=== PATIENT | female | born 1940 | race Caucasian/White ===

== ENCOUNTER → 2019-09-06 10:01 | Outpatient (BNVA) | payer MEDICARE, OTHER, SELFPAY | PROVIDERS: Family Provider Family Medicine; Referring Provider Dermatology; Visit Provider Dermatology | DX: B35.1 Tinea unguium (principal); D18.01 Hemangioma of skin and subcutaneous tissue; L82.1 Other seborrheic keratosis; L57.0 Actinic keratosis; Z12.83 Encounter for screening for malignant neoplasm of skin | CPT/HCPCS: 17000; 17003; 99203; 99204 ==

== ENCOUNTER → 2020-11-25 09:34 | Outpatient (BNVA) | payer MEDICARE, OTHER, SELFPAY | PROVIDERS: Family Provider Family Medicine; PCP Family Medicine; Visit Provider Internal Medicine Rheumatology | DX: M35.3 Polymyalgia rheumatica (principal); Z79.899 Other long term (current) drug therapy; Z79.52 Long term (current) use of systemic steroids; Z11.59 Encounter for screening for other viral diseases; Z11.1 Encounter for screening for respiratory tuberculosis; Z71.85 Encounter for immunization safety counseling | CPT/HCPCS: 99204 ==

== ENCOUNTER → 2021-04-01 08:49 | Outpatient (BNVA) | payer MEDICARE, OTHER, SELFPAY | PROVIDERS: Family Provider Family Medicine; PCP Family Medicine; Visit Provider Internal Medicine Rheumatology | DX: M05.79 Rheumatoid arthritis with rheumatoid factor of multiple sites without organ or systems involvement (principal); Z79.899 Other long term (current) drug therapy; Z79.52 Long term (current) use of systemic steroids; Z71.85 Encounter for immunization safety counseling | CPT/HCPCS: 99214 ==

== ENCOUNTER 2021-07-09 11:29 | Outpatient (CLI) | payer MEDICARE, OTHER, SELFPAY ==
[2021-07-09 12:41] LABS: Basophils % 0.5 %; Eosinophils # 0.1 10^3/uL (0.0-0.8); Eosinophils % 1.5 %; Hematocrit 40.6 % (37.0-47.0); Hemoglobin 13.4 g/dL (11.5-15.3); Mean Corpuscular Volume 90.8 fl (81-99); Mean Platelet Volume 10.5 fL (7.4-10.4); Monocytes # 0.5 10^3/uL (0.2-0.9); Monocytes % 8.3 %; Neutrophils # 4.37 10^3/uL (1.8-7.7); Nucleated Red Blood Cells % 0 %; Platelet Count 237 10^3/cmm (130-400); Red Blood Count 4.47 10^6/uL (4.1-5.3); Red Cell Distribution Width 13.7 % (12.1-15.1)
[2021-07-09 12:49] LABS: Alanine Aminotransferase 21 U/L (0-33); Albumin Level 4.9 g/dL (3.5-5.2); Alkaline Phosphatase 59 IU/L (35-105); Aspartate Amino Transferase 22 U/L (0-32); Globulin 2.4 g/dL (1.3-4.6); Total Bilirubin 0.5 mg/dL (0.15-1.2); Total Protein 7.3 g/dL (6.6-8.7)
== END 2021-07-09 11:30 | disposition home or self-care (01) ==
LOC: LAB 11:32
PROVIDERS: PCP Family Medicine; Visit Provider Internal Medicine Rheumatology
DX: Z79.899 Other long term (current) drug therapy (principal); M35.3 Polymyalgia rheumatica
CPT/HCPCS: 80076; 82565; 85025; 86140

== ENCOUNTER → 2021-07-29 10:19 | Outpatient (BNVA) | payer MEDICARE, OTHER, SELFPAY | PROVIDERS: PCP Family Medicine; Visit Provider Internal Medicine Rheumatology | DX: M05.79 Rheumatoid arthritis with rheumatoid factor of multiple sites without organ or systems involvement (principal); Z79.899 Other long term (current) drug therapy; Z79.52 Long term (current) use of systemic steroids; Z71.85 Encounter for immunization safety counseling | CPT/HCPCS: 99214 ==

== ENCOUNTER 2021-09-25 06:00 | Outpatient (RCR) | payer MEDICARE, OTHER, SELFPAY | END 2021-10-07 23:59 | disposition home or self-care (01) | LOC: APT 06:00 | PROVIDERS: PCP Family Medicine; Referring Provider Orthopaedic Surgery; Visit Provider Orthopaedic Surgery | DX: Z47.1 Aftercare following joint replacement surgery (principal); Z96.652 Presence of left artificial knee joint | CPT/HCPCS: 97110; 97161 ==

== ENCOUNTER 2021-10-08 06:00 | Outpatient (RCR) | payer MEDICARE, OTHER, SELFPAY | END 2021-11-06 23:59 | disposition home or self-care (01) | LOC: APT 06:00 | PROVIDERS: PCP Family Medicine; Referring Provider Orthopaedic Surgery; Visit Provider Orthopaedic Surgery | DX: Z47.1 Aftercare following joint replacement surgery (principal); Z96.652 Presence of left artificial knee joint | CPT/HCPCS: 97110 ==

== ENCOUNTER → 2021-11-05 09:18 | Outpatient (BNVA) | payer MEDICARE, OTHER, SELFPAY | PROVIDERS: PCP Family Medicine; Visit Provider Internal Medicine Rheumatology | DX: M05.79 Rheumatoid arthritis with rheumatoid factor of multiple sites without organ or systems involvement (principal); Z71.85 Encounter for immunization safety counseling; Z79.899 Other long term (current) drug therapy; Z79.52 Long term (current) use of systemic steroids | CPT/HCPCS: 99214 ==

== ENCOUNTER 2021-11-17 09:02 | Outpatient (CLI) | payer MEDICARE, OTHER, SELFPAY ==
[2021-11-17 09:42] LABS: Basophils % 0.8 %; Eosinophils # 0.2 10^3/uL (0.0-0.8); Eosinophils % 4.5 %; Hematocrit 40.1 % (37.0-47.0); Hemoglobin 12.8 g/dL (11.5-15.3); Lymphocytes # 1.1 10^3/uL (0.8-4.8); Lymphocytes % 22.2 %; Mean Corpuscular HGB Conc 31.9 g/dL (30.0-36.0); Mean Corpuscular Hemoglobin 29.4 pg (28.0-34.0); Mean Corpuscular Volume 92.2 fl (81-99); Mean Platelet Volume 10.3 fL (7.4-10.4); Monocytes # 0.4 10^3/uL (0.2-0.9); Monocytes % 8.2 %; Neutrophils # 3.12 10^3/uL (1.8-7.7); Neutrophils % 63.7 %; Nucleated Red Blood Cells % 0 %; Platelet Count 262 10^3/cmm (130-400); Red Blood Count 4.35 10^6/uL (4.1-5.3); Red Cell Distribution Width 13.5 % (12.1-15.1); White Blood Count 4.9 10^3/uL (4.0-10.0)
[2021-11-17 10:02] LABS: Alanine Aminotransferase 30 U/L (0-33); Albumin Level 4.2 g/dL (3.5-5.2); Alkaline Phosphatase 84 U/L (35-105); Aspartate Amino Transferase 27 U/L (0-32); Globulin 2.9 g/dL (1.3-4.6); Total Bilirubin 0.4 mg/dL (0.15-1.2); Total Protein 7.1 g/dL (6.6-8.7)
== END 2021-11-17 09:03 | disposition home or self-care (01) ==
LOC: LAB 09:08
PROVIDERS: PCP Family Medicine; Visit Provider Internal Medicine Rheumatology
DX: M05.79 Rheumatoid arthritis with rheumatoid factor of multiple sites without organ or systems involvement (principal); Z79.899 Other long term (current) drug therapy
CPT/HCPCS: 36415; 80076; 82565; 85025; 86140

== ENCOUNTER → 2022-01-18 11:13 | Outpatient (BNVA) | payer MEDICARE, OTHER, SELFPAY | PROVIDERS: PCP Family Medicine; Visit Provider Internal Medicine Rheumatology | DX: M05.79 Rheumatoid arthritis with rheumatoid factor of multiple sites without organ or systems involvement (principal); Z79.899 Other long term (current) drug therapy; Z71.85 Encounter for immunization safety counseling; M35.3 Polymyalgia rheumatica; Z79.52 Long term (current) use of systemic steroids | CPT/HCPCS: 99214 ==

== ENCOUNTER → 2022-05-18 11:12 | Outpatient (BNVA) | payer MEDICARE, OTHER, SELFPAY | PROVIDERS: PCP Family Medicine; Visit Provider Internal Medicine Rheumatology | DX: M05.79 Rheumatoid arthritis with rheumatoid factor of multiple sites without organ or systems involvement (principal); Z79.899 Other long term (current) drug therapy; Z71.85 Encounter for immunization safety counseling; M35.3 Polymyalgia rheumatica | CPT/HCPCS: 99214 ==

== ENCOUNTER 2022-06-24 08:02 | Outpatient (CLI) | payer MEDICARE, OTHER, SELFPAY ==
[2022-06-24 08:42] LABS: Eosinophils # 0.2 10^3/uL (0.0-0.8); Eosinophils % 4.1 %; Hematocrit 41.7 % (37.0-47.0); Hemoglobin 13.2 g/dL (11.5-15.3); Lymphocytes # 0.8 10^3/uL (0.8-4.8); Lymphocytes % 18.9 %; Mean Corpuscular HGB Conc 31.7 g/dL (30.0-36.0); Mean Corpuscular Hemoglobin 29.3 pg (28.0-34.0); Mean Corpuscular Volume 92.7 fl (81-99); Mean Platelet Volume 10.1 fL (7.4-10.4); Monocytes # 0.5 10^3/uL (0.2-0.9); Monocytes % 11.2 %; Neutrophils % 64.3 %; Nucleated Red Blood Cells % 0 %; Platelet Count 237 10^3/cmm (130-400); Red Cell Distribution Width 13.9 % (12.1-15.1); White Blood Count 4.2 10^3/uL (4.0-10.0)
[2022-06-24 09:01] LABS: Alanine Aminotransferase 23 U/L (0-33); Albumin Level 4.6 g/dL (3.5-5.2); Alkaline Phosphatase 71 U/L (35-105); Aspartate Amino Transferase 25 U/L (0-32); Globulin 2.6 g/dL (1.3-4.6); Total Bilirubin 0.5 mg/dL (0.15-1.2); Total Protein 7.2 g/dL (6.6-8.7)
== END 2022-06-24 08:03 | disposition home or self-care (01) ==
PROVIDERS: PCP Family Medicine; Visit Provider Internal Medicine Rheumatology
DX: M05.79 Rheumatoid arthritis with rheumatoid factor of multiple sites without organ or systems involvement (principal); Z79.899 Other long term (current) drug therapy
CPT/HCPCS: 80076; 82565; 85025; 86140

== ENCOUNTER → 2022-07-28 10:56 | Outpatient (BNVA) | payer MEDICARE, SELFPAY | PROVIDERS: PCP Family Medicine; Visit Provider Nurse Practitioner Family | DX: L57.8 Other skin changes due to chronic exposure to nonionizing radiation (principal); Z85.828 Personal history of other malignant neoplasm of skin; Z71.89 Other specified counseling; L85.3 Xerosis cutis; D22.5 Melanocytic nevi of trunk; L81.4 Other melanin hyperpigmentation; L82.1 Other seborrheic keratosis; L82.0 Inflamed seborrheic keratosis; L57.0 Actinic keratosis; Z12.83 Encounter for screening for malignant neoplasm of skin; L90.5 Scar conditions and fibrosis of skin | CPT/HCPCS: 17000; 17003; 17110; 99213 ==

== ENCOUNTER → 2022-09-14 11:00 | Outpatient (BNVA) | payer MEDICARE, OTHER, SELFPAY | PROVIDERS: PCP Family Medicine; Visit Provider Internal Medicine Rheumatology | DX: Z79.899 Other long term (current) drug therapy (principal); M05.79 Rheumatoid arthritis with rheumatoid factor of multiple sites without organ or systems involvement; Z71.85 Encounter for immunization safety counseling; M35.3 Polymyalgia rheumatica; Z79.52 Long term (current) use of systemic steroids | CPT/HCPCS: 36415; 80076; 82565; 85025; 86140; 99214 ==

== ENCOUNTER → 2023-07-28 11:30 | Outpatient (BNVA) | payer MEDICARE, OTHER, SELFPAY | PROVIDERS: PCP Family Medicine; Visit Provider Nurse Practitioner Family | DX: L57.8 Other skin changes due to chronic exposure to nonionizing radiation (principal); D48.5 Neoplasm of uncertain behavior of skin; L57.0 Actinic keratosis; L82.0 Inflamed seborrheic keratosis; L81.4 Other melanin hyperpigmentation; L82.1 Other seborrheic keratosis; Z85.828 Personal history of other malignant neoplasm of skin | CPT/HCPCS: 11102; 17000; 17110; 99213 ==

== ENCOUNTER 2024-02-02 12:35 | Inpatient (IN) | payer MEDICARE, OTHER, SELFPAY ==
[2024-02-02] VITALS (7 sets, daily range): BP systolic 113–128; BP diastolic 59–80; PULSE 85–108; RESP 16–17; TEMP 36.7–37; O2SAT 93–98; BMI 23.3
--- NOTE | 2024-02-02 12:46 | XRR_ITS ---
PROCEDURE INFORMATION: Exam: XR Chest Exam date and time: 02/02/2024 1:18 PM Age: 84 years old Clinical indication: Shortness of breath; Additional info: Syncope TECHNIQUE: Imaging protocol: Radiologic exam of the chest. Views: 1 view. COMPARISON: No relevant prior studies available. FINDINGS: Lungs: Unremarkable. No consolidation. Pleural spaces: Unremarkable. No pleural effusion. No pneumothorax. Heart/Mediastinum: Cardiac silhouette appears mildly enlarged on this portable chest. Bones/joints: Unremarkable. XR/XR chest 1V portable [id number] IMPRESSION: Mild cardiomegaly otherwise negative chest.
--- NOTE | 2024-02-02 12:46 | ECG_ITS ---
[facility] Test Date: 2024-02-02 Pat Name: Woo Garcia Department: Room: Gender: Female Director Of Event Management: : 1940 Requested By: Kenzie Koenig Order Number: [id number] Germania MD: Dipesh Nunez M.D. Measurements Intervals [place] Rate: 112 P: 0 [place]: 0 QRS: -62 QRSD: 139 T: 20 QT: 369 QTc: 505 Interpretive Statements ATRIAL FLUTTER WITH RAPID VENTRICULAR RESPONSE RIGHT BUNDLE BRANCH BLOCK [120+ ms QRS DURATION, UPRIGHT V1, 40+ ms S IN I/aVL/V4/V5/V6] LEFT ANTERIOR FASCICULAR BLOCK [QRS AXIS <= -45, QR IN I, RS IN II] No previous ECG available for comparison Electronically Signed On 02-03-2024 18:34:04 EXTRACTIONS TECHNICIAN by Dipesh Nunez M.D. [id number]
[2024-02-02 12:57] LABS: Glucose Point of Care 98 mg/dL (70-110)
--- NOTE | 2024-02-02 13:06 | ED_ITS ---
HPI - Syncope 2 General: Chief Complaint: Syncope Stated Complaint: syncope Time Seen by Provider: 02/02/24 12:36 Source: patient and EMS Mode of arrival: EMS Limitations: no limitations History of Present Illness: 84-year-old female states she has not fe lt well over the last 2 days she states that today she was going to the bathroom was on the toilet started to feel very lightheaded nauseous states she had laid on the floor did not pass out states she did not fall states she had laid down before she passed out. She denies any chest pain denies any fevers. Associated symptoms: Deny abdominal pain, chest pain, fever(s), headache(s) or nausea Related Data Home Medications Medication Instructions Recorded Confirmed atorvastatin 10 mg tablet 10 mg PO DAILY 02/02/24 02/02/24 losartan 50 mg-hydrochlorothiazide 0.5 tab PO DAILY 02/02/24 02/02/24 12.5 mg tablet omeprazole magnesium 20 mg 20 mg PO DAILY 02/02/24 02/02/24 tablet,delayed release (Prilosec OTC) Previous Rx's Medication Instructions Recorded cholecalciferol (vitamin D3) 50 2,000 unit PO DAILY #90 tabs 05/18/22 mcg (2,000 unit) tablet Allergies Allergy/AdvReac Type Severity Reaction Status Date / Time Sulfa (Sulfonamide Allergy Intermediate rash and Verified 09/14/22 11:27 Antibiotics) hives bad Review of Systems 2 Const: Denies: fever(s), chills, body aches or change in appetite ENMT: Denies: throat pain or dental pain Card: Reports: syncope; Denies: chest pain Resp: Denies: dyspnea GI: Denies: abdominal pain, nausea, vomiting or diarrhea : Denies: dysuria Musc: Denies: neck pain or back pain Skin/Breast: Denies: rash Neuro: Denies: headache(s) PFSH ED 2 PFSH: Medical History 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 Hypertension Hypercholesteremia Muscle pain Hemorrhoid surgery Immunization counseling High risk medication use Chronic steroid use Polymyalgia rheumatica Surgical History History of hysterectomy Previous back surgery x2 Family History Other CAD (coronary artery disease) Cancer Hypertension Denies family history of Rheumatoid arthritis Diabetes Lupus Chronic kidney disease (CKD) Lung disease Stroke Social History Smoking and tobacco/nicotine status: never used tobacco/nicotine Alcohol intake: current Alcohol intake frequency: holidays/special occasions only Substance/Drug Use: never Physical Exam 2 Const: COMMON NORMALS: patient oriented x3 HENMT: COMMON NORMALS: normocephalic and atraumatic HEAD & SCALP: n ormocephalic and atraumatic Eye: COMMON NORMALS: conjunctivae normal CONJUNCTIVA: Yes conjunctivae normal Neck/C-Spine: COMMON NORMALS: full ROM and supple Chest: COMMONS NORMALS: normal inspection of the chest Resp: COMMON NORMALS: normal respiratory effort, No retractions, No use of accessory muscles and clear to auscultation bilaterally AUSCULTATION: clear to auscultation bilaterally Cardio: COMMON NORMALS: regular rate, regular rhythm and No murmurs present (Cardio) RATE: regular rate RHYTHM: regular rhythm GI: COMMON NORMALS: Normal to inspection, nondistended, normoactive bowel sounds present, Soft to palpation, non-tender and no masses PALPATION: Yes Soft to palpation Extremity: COMMON NORMALS: normal to inspection and full ROM Neuro: COMMON NORMALS: patient oriented x3, moves all extremities and no focal motor deficits Psych: COMMON NORMALS: mental status grossly normal, Normal thought process present and cooperative THOUGHT PROCESS: Normal thought process present Skin: COMMON NORMALS: no rashes or lesions noted and no wounds GENERAL SKIN EXAM: no rashes or lesions noted Course 2 Vital Signs: Vital signs: Vital Signs Temperature 98.1 F 02/02/24 12:39 Pulse Rate 96 02/02/24 13:26 Respiratory Rate 16 02/02/24 13:26 Blood Pressure 113/73 02/02/24 13:26 Pulse Oximetry 93 02/02/24 13:26 Oxygen Delivery Me thod Room Air 02/02/24 13:26 MDM - Syncope Medical Decision Making Patient presents here after a syncopal event she been well-appearing here she does have new onset A-fib also did test positive for COVID likely causing her symptoms of the weakness and syncope I spoke to the hospitalist will admit at this time. Medical Records I reviewed the patient's medical records. Lab Data I reviewed the patient's lab results. 02/02/24 13:08 02/02/24 13:[address] 02/02/24 13:51 IMPRESSION: No acute intracranial hemorrhage or edema. Mild atrophy and small vessel disease. Laboratory Results WBC 4.01 10^3/uL (3.29-11.43) 02/02/24 13:08 RBC 5.11 10^6/uL (3.85-5.65) 02/02/24 13:08 Hgb 14.50 g/dL (11.27-16.99) 02/02/24 13:08 Hct 44.6 % (36-47) 02/02/24 13:08 MCV 87.3 fl (85-98) 02/02/24 13:08 MCH 28.4 pg (27-33) 02/02/24 13:08 MCHC 32.5 g/dL (30-55) 02/02/24 13:08 RDW 13.0 % (12.1-15.1) 02/02/24 13:08 Plt Count 178 10^3/cmm (157-399) 02/02/24 13:08 MPV 10.4 fL (7.4-10.4) 02/02/24 13:08 Neut % (Auto) 64.2 % 02/02/24 13:08 Lymph % (Auto) 20.7 % 02/02/24 13:08 [place] % (Auto) 14.5 % 02/02/24 13:08 Eos % (Auto) 0.2 % 02/02/24 13:08 Baso % (Auto) 0.2 % 02/02/24 13:08 Neut # (Auto) 2.57 10^3/uL (1.8-7.7) 02/02/24 13:08 Lymph # (Auto) 0.8 10^3/uL (0.8-4.8) 02/02/24 13:08 [place] # (Auto) 0.6 10^3/uL (0.2-0.9) 02/02/24 13:08 Eos # (Auto) 0.0 10^3/uL (0.0-0.8) 02/02/24 13:08 Baso # (Auto) 0.0 10^3/uL (0.0-0.1) 02/02/24 13:08 Nucleated RBC % (auto) 0 % 02/02/24 13:08 Nucleated RBCs # 0.0 /100WBC 02/02/24 13:08 Sodium 135 mmol/L (136-145) L 02/02/24 13:08 Potassium 4.0 mmol/L (3.5-5.1) 02/02/24 13:08 Chloride 96 mmol/L (98-107) L 02/02/24 13:08 Carbon Dioxide 27 mmol/L (22-29) 02/02/24 13:08 Anion Gap 16.0 (5-19) 02/02/24 13:08 BUN 16 mg/dL (8-23) 02/02/24 13:08 Creatinine 1.0 mg/dL (0.5-0.9) H 02/02/24 13:08 GFR Calculation Not Reportable 02/02/24 13:08 Glucose 101 mg/dL (65-115) 02/02/24 13:08 POC Glucose 98 mg/dL (70-110) 02/02/24 12:51 Calculated Osmolality 281 mOsm/kg (285-295) L 02/02/24 13:08 Calcium 8.9 mg/dL (8.5-10.5) 02/02/24 13:08 Total Bilirubin 0.3 mg/dL (0.15-1.2) 02/02/24 13:08 AST 33 U/L (0-32) H 02/02/24 13:08 ALT 25 U/L (0-33) 02/02/24 13:08 Alkaline Phosphatase 69 U/L (35-105) 02/02/24 13:08 Troponin T Baseline 9 ng/L (0-10) 02/02/24 13:08 Total Protein 7.0 g/dL (6.6-8.7) 02/02/24 13:08 Albumin 4.3 g/dL (3.5-5.2) 02/02/24 13:08 Globulin 2.7 g/dL (1.3-4.6) 02/02/24 13:08 Urine Color Yellow (Yellow) 02/02/24 13:14 Urine Appearance Clear (CLEAR) 02/02/24 13:14 Urine pH 6.5 (5-7) 02/02/24 13:14 Ur Specific [place] 1.018 (1.005-1.030) 02/02/24 13:14 Urine Protein 1+ (Negative) A 02/02/24 13:14 Urine Glucose (UA) Negative (Normal) 02/02/24 13:14 Urine Ketones 2+ (Negative) H 02/02/24 13:14 Urine Blood Negative (Negative) 02/02/24 13:14 Urine Nitrate Negative (Negative) 02/02/24 13:14 Urine Bilirubin Negative (Negative) 02/02/24 13:14 Urine Urobilinogen 1.0 mg/dL (Negative) 02/02/24 13:14 Ur Leukocyte Esterase Negative (Negative) 02/02/24 13:14 Urine RBC 0-2 /hpf (0-2) 02/02/24 13:14 Urine WBC 0-5 /hpf (0-5) 02/02/24 13:14 Ur Squamous Epith Cells 0-5 /hpf (0-5) 02/02/24 13:14 Amorphous Sediment Not Reportable 02/02/24 13:14 Urine Bacteria None seen /hpf (NONE) 02/02/24 13:14 Hyaline Casts 2.46 /lpf 02/02/24 13:14 Coronavirus (PCR) Positive (Negative) A 02/02/24 13:50 Influenza A (PCR) Negative (Negative) 02/02/24 13:50 Influenza Type B (PCR) Negative (Negative) 02/02/24 13:50 RSV (PCR) Negative (Negative) 02/02/24 13:50 All radiology interpretation(s) finalized by discharge EKG Data EKG 1: I personally reviewed and interpreted this EKG as follows: EKG interpretation date: 02/02/24 EKG interpretation time: 12:51 Interpretation: aflutter hr [address] elevation qrs 139 qtc 435 Discharge Plan Discharge Patient Disposition: Admitted As Inpatient Clinical Impression: Syncope, COVID-19, Atrial fibrillation Condition: Stable Prescriptions: No Action cholecalciferol (vitamin D3) 50 mcg (2,000 unit) tablet 2,000 unit PO DAILY Qty: 90 3RF atorvastatin 10 mg tablet 10 mg PO DAILY losartan-hydrochlorothiazide 50-12.5 mg tablet 0.5 tab PO DAILY omeprazole magnesium [Prilosec OTC] 20 mg Tablet,Delayed Release (Dr/Ec) 20 mg PO DAILY Referrals: Tadeo Baeza MD [Primary Care Provider] - Coding Level of Care Code ED Crop Research Scientist for Elaine Bland
[2024-02-02 13:15] LABS: Basophils % 0.2 %; Eosinophils % 0.2 %; Hematocrit 44.6 % (36-47); Lymphocytes # 0.8 10^3/uL (0.8-4.8); Lymphocytes % 20.7 %; Mean Corpuscular HGB Conc 32.5 g/dL (30-55); Mean Corpuscular Hemoglobin 28.4 pg (27-33); Mean Corpuscular Volume 87.3 fl (85-98); Mean Platelet Volume 10.4 fL (7.4-10.4); Monocytes # 0.6 10^3/uL (0.2-0.9); Monocytes % 14.5 %; Neutrophils # 2.57 10^3/uL (1.8-7.7); Neutrophils % 64.2 %; Nucleated Red Blood Cells % 0 %; Platelet Count 178 10^3/cmm (157-399); Red Blood Count 5.11 10^6/uL (3.85-5.65); White Blood Count 4.01 10^3/uL (3.29-11.43)
--- NOTE | 2024-02-02 13:16 | ECG_ITS ---
[facility] Date: 2024-02-02 Pat Name: Woo Garcia Department: Room: Gender: Female Watch Dial Printer: : 1940 Requested By: Kenzie Koenig Order Number: [id number] Germania MD: Dipesh Nunez M.D. Measurements Intervals [place] Rate: 109 P: 0 [place]: 0 QRS: -65 QRSD: 143 T: 23 QT: 368 QTc: 496 Interpretive Statements ATRIAL FIBRILLATION WITH RAPID VENTRICULAR RESPONSE RIGHT BUNDLE BRANCH BLOCK [120+ ms QRS DURATION, UPRIGHT V1, 40+ ms S IN I/aVL/V4/V5/V6] LEFT ANTERIOR FASCICULAR BLOCK [QRS AXIS <= -45, QR IN I, RS IN II] Compared to ECG 02/02/2024 12:51:16 Atrial flutter no longer present Electronically Signed On 02-03-2024 18:40:22 BUSINESS ANALYTICS SPECIALIST by Dipesh Nunez M.D. [id number]
[2024-02-02] MEDS: sodium chloride 0.9% 1,000 ML 999 ML IV (13:26)
[2024-02-02 13:33] LABS: Alanine Aminotransferase 25 U/L (0-33); Albumin Level 4.3 g/dL (3.5-5.2); Alkaline Phosphatase 69 U/L (35-105); Aspartate Amino Transferase 33 U/L (0-32); Blood Urea Nitrogen 16 mg/dL (8-23); Calcium 8.9 mg/dL (8.5-10.5); Carbon Dioxide 27 mmol/L (22-29); Chloride 96 mmol/L (98-107); Creatinine Clr Calc Pharmacy 40.1066; Globulin 2.7 g/dL (1.3-4.6); Glucose 101 mg/dL (65-115); Osmolality Calculated 281 mOsm/kg (285-295); Sodium 135 mmol/L (136-145); Total Bilirubin 0.3 mg/dL (0.15-1.2)
--- NOTE | 2024-02-02 13:51 | CT_ITS ---
WS: [id number] CT HEAD NONCONTRAST HISTORY: syncope TECHNIQUE: Contiguous axial imaging performed through the brain. Bone and soft tissue windows. Sagitt al and coronal reformats reviewed. All CT scans at [facility] use at least one of these dose optimization techniques: automated exposure control; mA and/or kV adjustment per patient size (includ es targeted exams where dose is matched to clinical indication); or iterative reconstruction. DLP: 1111.25 mGy.cm COMPARISON: 02/11/2012 No acute intracranial hemorrhage, midline shift or mass effect. Mild atrophy and small vessel disease. Mild progression since 2012. Ventricles: Normal size with no hydrocephalus. No inferior displacement of the cerebellar tonsils. Paranasal sinuses: Mucoperiosteal thickening in the ethmoid air cells. 1.5 cm mucous retention cyst i n the RIGHT maxillary sinus. Mastoid air cells: Well pneumatized. Calvarium and scalp: Skull is intact with no soft tissue edema or swelling. CT/CT head wo con* [id number] IMPRESSION: No acute intracranial hemorrhage or edema. Mild atrophy and small vessel disease.
[2024-02-02 14:24] LABS: Bilirubin Urine Negative (Negative); Blood Urine Negative (Negative); Glucose Urine UA Negative (Normal); Ketones Urine 2+ (Negative); Leukocyte Esterase Urine Negative (Negative); Nitrate Urine Negative (Negative); Protein Urine 1+ (Negative); Specific Gravity, Urine 1.018 (1.005-1.030); Urine Appearance Clear (CLEAR); Urine Color Yellow (Yellow); pH Urine 6.5 (5-7)
[2024-02-02 14:29] LABS: Add Urine Microscopic? YES; Bacteria Urine None Seen /hpf; Hyaline Casts Urine 2.46 /lpf; RBC Urine 0-2 /hpf (0-2); Squamous Epithelial Cell Urine 0-5 /hpf (0-5); WBC Urine 0-5 /hpf (0-5)
[2024-02-02 14:36] LABS: Influenza A NEGATIVE (Negative); Influenza B NEGATIVE (Negative); Respiratory Syncytial Virus Ce NEGATIVE (Negative)
[2024-02-02 14:38] LABS: Covid PCR Positive (Negative)
[2024-02-02 15:06] LABS: Troponin(5th) Baseline 9 ng/L (0-10)
--- NOTE | 2024-02-02 15:24 | PC.PHAR ---
Pt and daughter (Arcelia) were unsure of Atorvastatin 10mg. 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
[2024-02-02 15:47] LABS: Troponin 5 2HR 12.86 ng/L (0-10); Troponin 5 2HR Delta 3.86 ABS# (0-10)
[2024-02-02 16:06] LABS: D Dimer 0.98 ug/mLFEU (0-0.59)
[2024-02-02 16:17] LABS: NT Pro B Type Natriuretic Pept 1469 pg/mL (0-450)
--- NOTE | 2024-02-02 16:53 | USCV_ITS ---
Woo Garcia Age: 84 Gender: F : 1940 Exam Date: 02/02/2024 19:14 Ordering Phys: Darion Castro MD Technologist: SOMMER Exam Location: [facility] Indication: Atrial fibrillation, SOB, COVID ISOLATION BP: 118 / 80 HR: 84 Rhythm: Mostly AFIB with some strings sinus rhythm Technical Quality: Adequate MEASUREMENTS (Male / Female) Normal Values 2D ECHO LV Diastolic Diameter PLAX 3.7 cm 4.2 - 5.9 / 3.9 - 5.3 cm IVS Diastolic Thickness 1.7 cm 0.6 - 1.0 / 0.6 - 0.9 cm IVS Systolic Thickness 1.9 cm LVPW Diastolic Thickness 1.4 cm 0.6 - 1.0 / 0.6 - 0.9 cm LVPW Systolic Thickness 1.8 cm LVOT Diameter 1.9 cm LV Ejection Fraction 2D Teich 67.5 % LV Ejection Fraction MOD 4C 71.5 % LV Ejection Fraction MOD 2C 52.6 % LV Ejection Fraction 2C AL 49.0 % LA Diameter 4.0 cm LA Sys Volume AL 49.3 cm cubed LA Sys Volume Index AL 28.8 cm cubed/m squared Aorta at Sinotubular Diameter 3.2 cm IVC Diameter 0.9 cm M-MODE LA Ao Ratio MM 1.2 AV Cusp Separation MM 1.8 cm DOPPLER AV Peak Velocity 137.0 cm/s LVOT Peak Velocity 103.0 cm/s AV Area Cont Eq vti 2.1 cm squared AV Area Cont Eq pk 2.1 cm squared MV Peak Velocity 89.0 cm/s MV Area PHT 5.4 cm squared Mitral E to A Ratio 0.0 TV Peak Velocity 246.0 cm/s TR Peak Velocity 261.0 cm/s TR Peak Gradient 27.2 mmHg TV Peak E Velocity 47.0 cm/s PV Peak Velocity 70.0 cm/s FINDINGS Left Ventricle Left ventricle is normal in size. LV systolic function is normal with EF of 60-65%. No regional wall motion abnormalities. Severe left ventricular hyertrophy Right Ventricle Normal in size and function Right Atrium Normal in size Left Atrium Normal in size Mitral Valve Structurally normal mitral valve. Mild mitral regurgitation. Aortic Valve Aortic valve is thickened. No significant stenosis. Mild aortic regurgitation. Tricuspid Valve Mild tricuspid regurgitation. RVSP is normal Pulmonic Valve Not well visualized Pericardium Normal Aorta Normal in size IVC Appears to be normal CONCLUSIONS LV systolic function is normal with EF of 60-65% Severe left ventricular hypertrophy Mild mitral regurgitation Mild aortic regurgitation Mild tricuspid regurgitation No comparison studies are available. Dipesh Nunez MD (Electronically Signed) Final Date: 02 February 2024 21:08 S
--- NOTE | 2024-02-02 16:53 | CTR_ITS ---
PROCEDURE INFORMATION: Exam: CTA Chest With Contrast Exam date and time: 02/02/2024 6:41 PM Age: 84 years old Clinical indication: Shortness of breath; Additional info: Shortness of breath, covid, elevated dd dimer, presyncope TECHNIQUE: Imaging protocol: Computed tomographic angiography of the chest with contrast. Exam focused on the arteries. 3D rendering (Not supervised by radiologist): MIP and/or 3D reconstructed images were created by the technologist. Radiation optimization: All CT scans at this facility use at least one of these dose optimization techniques: automated exposure control; mA and/or kV adjustment per patient size (includes targeted exams where dose is matched to clinical indication); or iterative reconstruction. Contrast material: OMNIPAQUE 350; Contrast volume: 100 ml; Contrast route: INTRAVENOUS (IV); COMPARISON: CR XR chest 1V portable [id number] 02/02/2024 1:18 PM RADIATION DOSE METRICS: Total DLP (mGy-cm): 304.57 FINDINGS: Pulmonary arteries: Pulmonary vasculature is adequately opacified without filling defects or other evidence of acute pulmonary embolism. Aorta: Smooth dilatation of the thoracic aorta with ascending aorta measuring 4.5 cm in maximum diameter. Lungs: Mild subsegmental atelectasis right mid lung zone otherwise lung [place] are clear. Pleural spaces: Unremarkable. No pneumothorax. No pleural effusion. Heart: Heart is mildly enlarged. No coronary artery calcifications or pericardial effusion. Esophagus: There is some fluid within the distal half of the esophagus presumably secondary to reflux. Lymph nodes: Unremarkable. No enlarged lymph nodes. Bones/joints: Unremarkable. No acute fracture. Soft tissues: There are bilateral breast implants present, intact. CT/CT angio chest PE protcl [id number] IMPRESSION: Negative CT angiogram of the chest. No evidence of acute pulmonary embolism.
--- NOTE | 2024-02-02 16:57 | PM.HP ---
Providers/Chief Complaint Admitting Physician: Darion Castro MD Primary Care Provider: Tadeo Baeza MD Chief Complaint: syncope History of Present Illness Woo Garcia is a 84 year old female with a past medical history of polymyalgia rheumatica, hypertension, who presents to [facility] for presyncopal episode, shortness of breath, fatigue, malaise, poor appetite. Patient tells me that she lives at home by herself, recently she has been reporting increased shortness of breath with exertion, she feels that her health has been declining in the last few months. She has been feeling well but cannot exactly point to the reason why. Denies any chest pain, denies any palpitations denies a history of atrial fibrillation. Denies a history of CAD. She denies a history of strokes. No history of smoking. No history of COPD. She tells me that over the last week her appetite has declined, she is less mobile, she has felt ill, she also has some sinus congestion, no cough, during our conversations, her O2 sats do drop into the low 80s, she tells me that today, she was in the bathroom, when she felt lightheaded and dizzy, she felt like she was going to pass out so she actually put down towels as she thought that she might fall to the ground so she wanted to question her fall, she did fall to the ground she does not think she hit her head, she does not think that she fully passed out but does not remember the event that well, but could not get up off the ground, denies any significant pain anywhere currently Review of Systems Const: Reports: fatigue and malaise; Denies: fever(s) Card: Denies: chest pain Resp: Denies: dyspnea GI: Denies: abdominal pain Medications/Allergies Home Medications Medication Instructions Recorded Confirmed Last Taken Type cholecalciferol (vitamin D3) 50 2,000 unit PO DAILY #90 tabs 05/18/22 02/02/24 02/01/24 Rx mcg (2,000 unit) tablet atorvastatin 10 mg tablet 10 mg PO DAILY 02/02/24 02/02/24 02/01/24 History losartan 50 mg-hydrochlorothiazide 0.5 tab PO DAILY 02/02/24 02/02/24 02/01/24 History 12.5 mg tablet omeprazole magnesium 20 mg 20 mg PO DAILY 02/02/24 02/02/24 02/01/24 History tablet,delayed release (Prilosec OTC) Allergies Allergy/AdvReac Type Severity Reaction Status Date / Time Sulfa (Sulfonamide Allergy Intermediate rash and Verified 09/14/22 11:27 Antibiotics) hives bad PFSH Acute PFSH: Medical History 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 Hypertension Hypercholesteremia Muscle pain Hemorrhoid surgery Immunization counseling High risk medication use Chronic steroid use Polymyalgia rheumatica Surgical History History of hysterectomy Previous back surgery x2 Family History Other CAD (coronary artery disease) Cancer Hypertension Denies family history of Rheumatoid arthritis Diabetes Lupus Chronic kidney disease (CKD) Lung disease Stroke Social History Smoking and tobacco/nicotine status: never used tobacco/nicotine Alcohol intake: current Alcohol intake frequency: holidays/special occasions only Substance/Drug Use: never Vitals/I&O/Wt Last Vital Signs Temp 98.1 F 02/02/24 12:39 Pulse 87 02/02/24 16:30 Resp 16 02/02/24 13:26 BP 118/80 02/02/24 16:30 Pulse Ox 97 02/02/24 16:30 O2 Del Method Room Air 02/02/24 16:30 Weight last 48 hrs Weight 63.503 kg Physical Exam Const: COMMON NORMALS: no acute distress and patient oriented x3 HENMT: COMMON NORMALS: normocephalic HEAD & SCALP: normocephalic Eye: COMMON NORMALS: Equal, round and reactive pupils present and EOMs intact bilaterally Neck/C-Spine: COMMON NORMALS: no JVD Resp: COMMON NORMALS: normal respiratory effort, No retractions, No use of accessory muscles and clear to auscultation bilaterally AUSCULTATION: clear to auscultation bilaterally Cardio: COMMON NORMALS: no JVD, regular rate, regular rhythm, S1 normal heart sound present and S2 normal heart sound present RATE: regular rate RHYTHM: regular rhythm HEART SOUNDS: S1 normal heart sound present and S2 normal heart sound present GI: COMMON NORMALS: Normal to inspection, nondistended, normoactive bowel sounds present, Soft to palpation and non-tender Extremity: COMMON NORMALS: no pedal edema Neuro: COMMON NORMALS: patient oriented x3, CN's II-XII intact bilaterally, moves all extremities and no focal motor deficits Psych: COMMON NORMALS: mental status grossly normal Data 02/02/24 13:08 02/02/24 13:08 A&P Assessment and plan (1) Syncope: (2) COVID-19: (3) Atrial fibrillation: (4) Dehydration: Plan Syncopal episode # Could be orthostatic hypotension # Will check orthostatic vitals # IV fluids # Cardiac echo # Telemetry monitoring # Monitor troponins New onset atrial fibrillation # Check TSH, cardiac echo, telemetry monitoring # Currently rate controlled # Will discuss anticoagulant therapy long-term based on clinical progress COVID-19 # Currently not requiring oxygen # Given her syncopal episode no new onset atrial fibrillation, or shortness of breath complaints, will order CT angiogram of the chest to rule out PE ? Continue to clinically monitor Will hold off on steroids and remdesivir Dehydration, IV fluids The patient is DNR/DNI, confirmed with patient multiple times Lovenox for DVT prophylaxis Attestations Medical Necessity Statement*: Patient requires hospitalization, outpatient with observation, for syncopal episode, new onset atrial fibrillation COVID-19, dehydration, Diagnoses Syncope R55 COVID-19 U07.1 Atrial fibrillation I48.91 Dehydration E86.0
--- NOTE | 2024-02-02 17:27 | ECG_ITS ---
[facility] Test Date: 2024-02-02 Pat Name: Woo Garcia Department: Room: 105 Gender: Female Dietetic Technician: : 1940 Requested By: Darion Castro Order Number: [id number] Germania MD: Dipesh Nunez M.D. Measurements Intervals [place] Rate: 90 P: 0 [place]: 0 QRS: -61 QRSD: 137 T: -18 QT: 377 QTc: 464 Interpretive Statements ATRIAL FIBRILLATION RIGHT BUNDLE BRANCH BLOCK [120+ ms QRS DURATION, UPRIGHT V1, 40+ ms S IN I/aVL/V4/V5/V6] LEFT ANTERIOR FASCICULAR BLOCK [QRS AXIS <= -45, QR IN I, RS IN II] Compared to ECG 02/02/2024 13:16:11 No significant changes Electronically Signed On 02-03-2024 18:39:09 COMPOUND MACHINE OPERATOR by Dipesh Nunez M.D. [id number]
[2024-02-02 18:37] LABS: NT Pro B Type Natriuretic Pept 1537 pg/mL (0-450)
[2024-02-02 18:50] LABS: Lactic Sepsis W/Reflex 1.1 mmol/L (0.5-2.2)
[2024-02-02] MEDS: iohexol 350 mg/mL 500 mL Btl (per mL) IV (18:52)
[2024-02-02 19:34] LABS: Troponin 5 6HR 9.55 ng/L (0-10); Troponin 5 6HR Delta 0.55 ng/L (0-12)
[2024-02-02 19:52] LABS: Chol HDL Ratio 2.82 mg/dL (0.0-4.40); Cholesterol 127 mg/dL (0-200); Creatine Phosphokinase 151 U/L (26-192); HDL Cholesterol 45 mg/dL (60-100); LDL Cholesterol Calculated 62 mg/dL (50-129); LDL HDL Ratio 1.38 RATIO (0.00-3.22); Thyroid Stimulating Hormone 2.65 uIU/mL (0.27-4.20); Triglycerides 101 mg/dL (0-150)
[2024-02-02] MEDS: enoxaparin 40 mg/0.4 mL Syringe SUBCUT (20:12)
[2024-02-02] MEDS: pantoprazole 40 mg SDV IVP (20:12)
[2024-02-02] MEDS: sodium chloride 0.9% 1,000 ML 100 ML IV (20:12)
[2024-02-02 20:21] LABS: Estmated Average Glucose 111; Hemoglobin A1C 5.5 % (4.0-6.0)
--- NOTE | 2024-02-02 21:27 | ECG_ITS ---
[facility] Test Date: 2024-02-02 Pat Name: Woo Garcia Department: Room: 105 Gender: Female General Maintenance Engineer: : 1940 Requested By: Darion Castro Order Number: [id number] Germania MD: Dipesh Nunez M.D. Measurements Intervals [place] Rate: 88 P: 0 PA: 0 QRS: -53 QRSD: 140 T: -19 QT: 403 QTc: 488 Interpretive Statements ATRIAL FIBRILLATION RIGHT BUNDLE BRANCH BLOCK [120+ ms QRS DURATION, UPRIGHT V1, 40+ ms S IN I/aVL/V4/V5/V6] LEFT ANTERIOR FASCICULAR BLOCK [QRS AXIS <= -45, QR IN I, RS IN II] POSSIBLE ANTERIOR MYOCARDIAL INFARCTION , OF INDETERMINATE AGE [30 ms Q WAVE IN V3/V4, OR R < 0.2 mV IN V4] MODERATE T-WAVE ABNORMALITY, CONSIDER LATERAL ISCHEMIA [-0.1+ mV T-WAVE IN I/aVL/V5/V6] Compared to ECG 02/02/2024 17:33:42 Myocardial infarct finding now present T-wave abnormality now present Possible ischemia now present Electronically Signed On 02-03-2024 18:38:35 WEB APPLICATIONS PROGRAMMER by Dipesh Nunez M.D. [email or web address]
--- NOTE | 2024-02-02 23:45 | PC.NURSE ---
Patient began having multiple sinus pauses lasting between 3-5 seconds at [address] Tubbs. Patient then converted into sinus bradycardia at 2340.
[2024-02-03] VITALS (8 sets, daily range): BP systolic 103–168; BP diastolic 58–91; PULSE 59–67; RESP 17–25; TEMP 36.7–37.2; O2SAT 92–99
[2024-02-03] MEDS: sodium chloride 0.9% 1,000 ML 100 ML IV ×2 (05:13→15:06)
[2024-02-03 06:09] LABS: Basophils % 0.4 %; Eosinophils % 1.1 %; Hematocrit 40.8 % (36-47); Lymphocytes # 1.3 10^3/uL (0.8-4.8); Lymphocytes % 46.2 %; Mean Corpuscular HGB Conc 31.9 g/dL (30-55); Mean Corpuscular Hemoglobin 28.4 pg (27-33); Mean Corpuscular Volume 89.3 fl (85-98); Mean Platelet Volume 10.4 fL (7.4-10.4); Monocytes # 0.4 10^3/uL (0.2-0.9); Monocytes % 15.9 %; Nucleated Red Blood Cells % 0 %; Platelet Count 147 10^3/cmm (157-399); Red Blood Count 4.57 10^6/uL (3.85-5.65); Red Cell Distribution Width 13.2 % (12.1-15.1); White Blood Count 2.77 10^3/uL (3.29-11.43)
[2024-02-03 06:27] LABS: Alanine Aminotransferase 17 U/L (0-33); Albumin Level 3.5 g/dL (3.5-5.2); Alkaline Phosphatase 52 U/L (35-105); Anion Gap 11.9 (5-19); Aspartate Amino Transferase 27 U/L (0-32); Blood Urea Nitrogen 14 mg/dL (8-23); Carbon Dioxide 25 mmol/L (22-29); Chloride 103 mmol/L (98-107); Creatinine Clr Calc Pharmacy 48.3884; Globulin 2.2 g/dL (1.3-4.6); Glucose 100 mg/dL (65-115); Osmolality Calculated 283 mOsm/kg (285-295); Potassium 3.9 mmol/L (3.5-5.1); Sodium 136 mmol/L (136-145); Total Bilirubin 0.3 mg/dL (0.15-1.2); Total Protein 5.7 g/dL (6.6-8.7)
--- NOTE | 2024-02-03 09:05 | PC.CHAP ---
Pastoral Care Encounter/Spiritual Assessment Type of Contact [] Declined phone circuit operator visit [] Patient/Family/Request visit [] Outpatient visit [] Follow-up visit [] Physician referral [] Code/Alert [] Routine visit [] Staff referral [] Actively dying [] Patient sleeping [] Family support [] [] Out of room [] Palliative care [] [] Receiving care in room [] Pre-surgical visit [] Trauma [] Long length of stay [] ICU visit [] Other:STOP See Nurse Relational/Emotional Strength [] Patient feels connected with others/family/visitors/staff [] Distress [] Loneliness/isolation [] Abandonment Spirituality of Patient [] Person of [place] [] Attends Muslim of their [place] [] Believes in Prayer [] Reads Bible or Sikhism materials [] There are Spiritual issues to be addressed Child Abuse Worker Interventions [] Prayer [] Active listening [] Non-anxious presence [] Spiritual/emotional support [] Crisis/trauma care [] Spiritual counseling [] Bereavement support [] Provided bereavement packet [] Provided Bible/devotional materials [] Provided toy/stuffed animal, coloring book to patient or family member [] Provided Communion [] Anointing/[place] [] Salvation [] Completed spiritual assessment [] Other: Impact on Illness or Injury [] Angry [] Fearful [] Anxious [] Often cries [] Exhaustion [] Unable to work [] Unable to attend quaker [] Unable to walk/stand [] Unable to read [] Unable to drive [] Unable to eat/drink [] Unable to sleep [] Unable to be with family [] Patient intubated [] Other: Summary Time spent with patient
--- NOTE | 2024-02-03 10:22 | USCV_ITS ---
Woo Garcia Age: 84 Gender: F : 1940 Exam Date: 02/03/2024 13:59 Ordering Phys: Darion Castro MD Technologist: CT Exam Location: [facility] – [place] Indication: Risk Factors: Previous Vascular Surgery: Right Brachial BP: / Left Brachial BP: / Right Left Velocity (cm/s) Spectral Plaque Velocity (cm/s) Spectral Plaque Syst/Diast Broadening Syst/Diast Broadening 104.30/30.30 Prox CCA 84.60 / 16.80 99.00/ 32.10 Mid CCA 74.00 / 25.10 75.30/ 23.50 Distal CCA 61.90 / 16.70 62.50/ 19.70 Prox ICA 69.40 / 26.10 73.10/ 22.80 Mid ICA 66.30 / 21.70 73.10/ 24.30 Distal ICA 79.70 / 27.90 72.30 ECA 73.20 1.00 ICA/CCA 1.30 Antegrade Vertebral Antegrade 32.80/ 7.30 cm/s 56.10/ 15.70 cm/s Bi Subclavian Bi 66.70 96.90 FINDINGS Comparison: none available. No significant elevation of systolic or diastolic velocities. Minimal bilateral, calcified plaque with no elevation of velocity. Antegrade vertebral arteries. CONCLUSIONS Bilateral ICA stenosis less than 50%. Minimal carotid athererosclerosis. Dr. Kym Chopra DO (Electronically Signed) Final Date: 03 February 2024 14:37 S
--- NOTE | 2024-02-03 11:07 | PC.SOCIAL ---
IMM Updated Updated pt on IMM. No questions voiced. Provided pt a copy. Initialed, dated, & timed a copy & placed in chart.
[2024-02-03] MEDS: ondansetron 2 mg/ML SDV 2 mL 4 MG IVP (12:25)
--- NOTE | 2024-02-03 13:57 | P.PN_ITS ---
Subjective 2 Subjective: Patient was seen this morning, she is alert oriented x 3, following all commands, discussed events overnight she felt was found to have orthostatic hypotension systolic blood pressure dropping over 20 points, she does tell me that she was symptomatic she felt lightheaded, discussed events overnight, she was found to have sinus pauses, we will have to continue to monitor her here in the hospital, Vitals/I&O/Wt Last Vital Signs Temp 98.5 F 02/03/24 11:44 Pulse 60 02/03/24 11:44 Resp 18 02/03/24 11:44 BP 128/91 02/03/24 11:44 Pulse Ox 92 02/03/24 07:45 O2 Del Method Room Air 02/03/24 07:45 02/02/24 02/03/24 02/03/24 22:59 06:59 14:59 Intake Total 1000 / 1000 901.667 / 1901.667 240 / 240 Balance 1000 / 1000 901.667 / 1901.667 240 / 240 Weight last 48 hrs Weight 76.294 kg Weight 74.389 kg Weight 63.503 kg Physical Exam 2 Const: COMMON NORMALS: no acute distress and patient oriented x3 Resp: COMMON NORMALS: normal respiratory effort, No retractions, No use of accessory muscles and clear to auscultation bilaterally AUSCULTATION: clear to auscultation bilaterally Cardio: COMMON NORMALS: regular rate, regular rhythm, S1 normal heart sound present and S2 normal heart sound present RATE: regular rate RHYTHM: r egular rhythm HEART SOUNDS: S1 normal heart sound present and S2 normal heart sound present GI: COMMON NORMALS: Normal to inspection, nondistended, normoactive bowel sounds present and non-tender Extremity: COMMON NORMALS: no pedal edema Neuro: COMMON NORMALS: patient oriented x3 Psych: COMMON NORMALS: mental status grossly normal Data 02/03/24 05:52 02/03/24 05:52 A&P Assessment and plan (1) Syncope: (2) COVID-19: (3) Atrial fibrillation: (4) Dehydration: (5) Sinus pause: (6) Orthostatic hypotension: Plan Syncopal episode # Likely orthostatic hypotension # Could be coded from A-fib, sinus pauses # Orthostatic vitals positive # IV fluids # Cardiac echo shows evidence of LVH # Telemetry monitoring # Monitor troponins ? Spoke to Dr. Nunez, cardiology will consult New onset atrial fibrillation # Currently into normal sinus rhythm # Currently rate controlled # Will discuss anticoagulant therapy long-term based on clinical progress COVID-19 # Currently not requiring oxygen # CT angiogram negative for PE ? Continue to clinically monitor Will hold off on steroids and remdesivir Dehydration, IV fluids The patient is DNR/DNI, confirmed with patient multiple times Lovenox for DVT prophylaxis Attestations 2 Medical Necessity Statement*: Patient requires hospitalization for syncopal episode, orthostatic hypotension, sinus pause, atrial fibrillation Diagnoses Syncope R55 COVID-19 U07.1 Atrial fibrillation I48.91 Dehydration E86.0 Sinus pause I45.5 Orthostatic hypotension I95.1
--- NOTE | 2024-02-03 14:15 | PC.OT ---
OT evaluation completed, services not indicated at this time.
[2024-02-03] MEDS: pantoprazole 40 mg SDV IVP (18:06)
[2024-02-03] MEDS: enoxaparin 40 mg/0.4 mL Syringe SUBCUT (18:07)
[2024-02-04] VITALS (54 sets, daily range): BP systolic 124–169; BP diastolic 58–93; PULSE 52–76; RESP 11–20; TEMP 36.9; O2SAT 89–97; BMI 28.0
[2024-02-04] MEDS: sodium chloride 0.9% 1,000 ML 100 ML IV (01:24)
[2024-02-04 07:17] LABS: Basophils % 0.4 %; Eosinophils # 0.1 10^3/uL (0.0-0.8); Eosinophils % 5.2 %; Hematocrit 37.6 % (36-47); Lymphocytes # 0.9 10^3/uL (0.8-4.8); Lymphocytes % 40.7 %; Mean Corpuscular HGB Conc 32.2 g/dL (30-55); Mean Corpuscular Hemoglobin 28.4 pg (27-33); Mean Corpuscular Volume 88.3 fl (85-98); Mean Platelet Volume 10.1 fL (7.4-10.4); Monocytes # 0.4 10^3/uL (0.2-0.9); Monocytes % 15.2 %; Neutrophils % 38.1 %; Nucleated Red Blood Cells % 0 %; Platelet Count 146 10^3/cmm (157-399); Red Blood Count 4.26 10^6/uL (3.85-5.65); Red Cell Distribution Width 13.3 % (12.1-15.1); White Blood Count 2.31 10^3/uL (3.29-11.43)
[2024-02-04 07:21] LABS: Neutrophils # 0.88 10^3/uL (1.8-7.7)
[2024-02-04 07:34] LABS: Alanine Aminotransferase 15 U/L (0-33); Albumin Level 3.4 g/dL (3.5-5.2); Alkaline Phosphatase 51 U/L (35-105); Aspartate Amino Transferase 24 U/L (0-32); Blood Urea Nitrogen 12 mg/dL (8-23); Calcium 8.1 mg/dL (8.5-10.5); Carbon Dioxide 26 mmol/L (22-29); Chloride 109 mmol/L (98-107); Creatinine Clr Calc Pharmacy 48.3884; Globulin 2.1 g/dL (1.3-4.6); Glucose 95 mg/dL (65-115); Osmolality Calculated 292 mOsm/kg (285-295); Sodium 141 mmol/L (136-145); Total Bilirubin 0.2 mg/dL (0.15-1.2); Total Protein 5.5 g/dL (6.6-8.7)
--- NOTE | 2024-02-04 10:57 | PM.CONSULT ---
Providers/Reason For Consult Consulting Physician/Specialty*: Dipesh Nunez MD/ Cardiology Reason for Consult*: Presyncope/ Sinus pause/ Atrial fibrillation Attending Physician: Darion Castro MD Primary Care Provider: Tadeo Baeza MD History of Present Illness History of Present Illness ( Please consider this note for 02/03/2024, patient was seen however note was missed.) Woo Garcia is a 84 year old female with past medical history of hypertension, polymyalgia rheumatica who presented to hospital after having a presyncope/ syncopal episode. She is also having shortness of breath and cough. Was found to have COVID positive. Patient felt lightheadedness when standing from a sitting position. However had enough time to get to the ground and not hit her head. Cardiology was consulted as patient was in atrial fibrillation event presented to hospital and had sinus pauses up to close to 5 seconds. This was last night. Patient was sleeping at the time. EKG showed atrial fibrillation with RVR at presentation. Troponins did not trend up significantly. Echo shows normal LV systolic function with LVH. Review of Systems Const: Reports: fatigue Card: Reports: palpitations and swelling of feet/ankles Resp: Reports: dyspnea Medications/Allergies Home Medications Medication Instructions Recorded Confirmed Last Taken Type cholecalciferol (vitamin D3) 50 2,000 unit PO DAILY #90 tabs 05/18/22 02/02/24 02/01/24 Rx mcg (2,000 unit) tablet atorvastatin 10 mg tablet 10 mg PO DAILY 02/02/24 02/02/24 02/01/24 History losartan 50 mg-hydrochlorothiazide 0.5 tab PO DAILY 02/02/24 02/02/24 02/01/24 History 12.5 mg tablet omeprazole magnesium 20 mg 20 mg PO DAILY 02/02/24 02/02/24 02/01/24 History tablet,delayed release (Prilosec OTC) aspirin 81 mg tablet,delayed 81 mg PO DAILY 30 days #30 tabs 02/04/24 Unknown Rx release hydrochlorothiazide 12.5 mg tablet 12.5 mg PO DAILY PRN for sbp>160 02/04/24 Unknown Rx or dbp>90 30 days #30 tabs Allergies Allergy/AdvReac Type Severity Reaction Status Date / Time Sulfa (Sulfonamide Allergy Intermediate rash and Verified 08/08/23 11:27 Antibiotics) hives bad Current Medications Generic Name Dose Route Start Last Admin Trade Name Bautistaq PRN Reason Stop Dose Admin Enoxaparin Sodium 40 mg 02/02/24 19:11 02/03/24 18:07 Enoxaparin 40 Mg/0.4 Ml Syringe SUBCUT 40 mg Q24H TY Administration Ondansetron HCl 4 mg 02/02/24 19:11 02/03/24 12:25 Ondansetron 2 Mg/Ml Sdv 2 Ml IVP 4 mg Q8H PRN Administration vomiting, or N/V if npo Pantoprazole Sodium 40 mg 02/02/24 19:11 02/03/24 18:06 Pantoprazole 40 Mg Sdv IVP 40 mg Q24H TY Administration PFSH Acute PFSH: Medical History 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 Hypertension Hypercholesteremia Muscle pain Hemorrhoid surgery Immunization counseling High risk medication use Chronic steroid use Polymyalgia rheumatica Surgical History History of hysterectomy Previous back surgery x2 Family History Other CAD (coronary artery disease) Cancer Hypertension Denies family history of Rheumatoid arthritis Diabetes Lupus Chronic kidney disease (CKD) Lung disease Stroke Social History Smoking and tobacco/nicotine status: never used tobacco/nicotine Alcohol intake: current Alcohol intake frequency: holidays/special occasions only Substance/Drug Use: never Vitals/I&O/Wt Last Vital Signs Temp 98.4 F 02/04/24 08:00 Pulse 76 02/04/24 08:00 Resp 14 02/04/24 08:00 BP 169/85 02/04/24 08:00 Pulse Ox 94 02/04/24 08:00 O2 Del Method Room Air 02/04/24 08:00 02/03/24 02/04/24 02/04/24 22:59 06:59 14:59 Intake Total 1188.333 / 1461.997 8698 / 2428.333 240 / 240 Output Total 2 / 2 Balance 1186.333 / 9292.390 9430 / 2426.333 240 / 240 Weight last 48 hrs Weight 168 lb 3.2 oz Weight 168 lb 3.2 oz Weight 164 lb Weight 140 lb Physical Exam Narrative: GENERAL: Patient is alert, awake and oriented x3. [] NECK: No jugular vein distension. [] HEENT: No cyanosis. No icterus. No pallor. [] HEART: Regular S1 and S2. No murmur, rub or gallop. [] LUNGS: Clear to auscultate bilaterally. [] CENTRAL NERVOUS SYSTEM: Grossly nonfocal. [] EXTREMITIES: Lower extremities with 1+ edema bilaterally. Data 02/04/24 07:01 02/04/24 07:01 A&P Assessment and plan (1) Atrial fibrillation: (2) Sinus pause: (3) Orthostatic hypotension: (4) Dehydration: (5) COVID-19: (6) Syncope: Plan Patient had pauses last night and was converting from atrial fibrillation to sinus rhythm. None since then. She was sleeping at the time. Asymptomatic. At this time we will continue telemetry monitoring. At time of discharge will recommend event monitor. Syncopal/presyncopal episodes secondary to orthostatic hypotension. Continue holding all rate controlling agents. Discussion regarding anticoagulation. Patient and family will consider and will inform us of if they are OK with starting anticoagulation vs staying with aspirin. Risk of stroke discussed. Thank you for involving us with care of this patient. We will continue to follow. Please call with questions. Consult Attestations Medical Necessity Statement: Care expected to cross 2 midnights. Coding Level of Care Code Acute Code for [facility] Diagnoses Atrial fibrillation I48.91 Sinus pause I45.5 Orthostatic hypotension I95.1 Dehydration E86.0 COVID-19 U07.1 Syncope R55
--- NOTE | 2024-02-04 10:58 | P.PN_ITS ---
Subjective 2 Subjective: Patient feeling much better. No chest pain. No more pauses. Vitals/I&O/Wt Last Vital Signs Temp 98.4 F 02/04/24 08:00 Pulse 76 02/04/24 08:00 Resp 14 02/04/24 08:00 BP 169/85 02/04/24 08:00 Pulse Ox 94 02/04/24 08:00 O2 Del Method Room Air 02/04/24 08:00 02/03/24 02/04/24 02/04/24 22:59 06:59 14:59 Intake Total 1188.333 / 3115.272 9246 / 2428.333 240 / 240 Output Total 2 / 2 Balance 1186.333 / 6501.201 4408 / 2426.333 240 / 240 Weight last 48 hrs Weight 168 lb 3.2 oz Weight 168 lb 3.2 oz Weight 164 lb Weight 140 lb Physical Exam 2 Narrative: GENERAL: Patient is alert, awake and oriented x3. [] NECK: No jugular vein distension. [] HEENT: No cyanosis. No icterus. No pallor. [] HEART: Regular S1 and S2. No murmur, rub or gallop. [] LUNGS: Clear to auscultate bilaterally. [] CENTRAL NERVOUS SYSTEM: Grossly nonfocal. [] EXTREMITIES: Lower extremities with 1+ edema bilaterally. Data 02/04/24 07:01 02/04/24 07:01 A&P Assessment and plan (1) Atrial fibrillation: (2) Sinus pause: (3) Orthostatic hypotension: (4) Dehydration: (5) COVID-19: (6) Syncope: Plan No more pauses. Recommend 30-day event monitor at time of discharge. Outpatient cardiology follow-up in 6 weeks Patient and family want to hold off on anticoagulation. They understand risks and benefits. Starting aspirin. If has heavy afib burden on the monitor will have further discussion. Thank you for involving us with care of this patient. We will continue to follow. Please call with questions. Attestations 2 Medical Necessity Statement*: Care expected to cross 2 midnights. Coding Level of Care Code Acute Code for [facility] Diagnoses Atrial fibrillation I48.91 Sinus pause I45.5 Orthostatic hypotension I95.1 Dehydration E86.0 COVID-19 U07.1 Syncope R55
--- NOTE | 2024-02-04 10:59 | PM.DCS ---
Discharge Providers Date of Admission: 02/02/24 15:49 Date of Discharge: February 04, 2024 Attending Provider at Admission: Darion Castro MD Attending Provider at Discharge: Darion Castro MD Primary Care Provider: Tadeo Baeza MD Diagnoses at Discharge Discharge Diagnosis (1) Syncope: Status: Acute (2) COVID-19: Status: Acute (3) Atrial fibrillation: Status: Acute (4) Dehydration: Status: Acute (5) Sinus pause: Status: Acute (6) Orthostatic hypotension: Status: Acute Reason for Visit Reason for Visit: syncope Hospital Course Hospital Course Woo Garcia is a 84 year old female with a past medical history of polymyalgia rheumatica, hypertension, who presents to [facility] for presyncopal episode, shortness of breath, fatigue, malaise, poor appetite. Patient tells me that she lives at home by herself, recently she has been reporting increased shortness of breath with exertion, she feels that her health has been declining in the last few months. She has been feeling well but cannot exactly point to the reason why. Denies any chest pain, denies any palpitations denies a history of atrial fibrillation. Denies a history of CAD. She denies a history of strokes. No history of smoking. No history of COPD. She tells me that over the last week her appetite has declined, she is less mobile, she has felt ill, she also has some sinus congestion, no cough, during our conversations, her O2 sats do drop into the low 80s, she tells me that today, she was in the bathroom, when she felt lightheaded and dizzy, she felt like she was going to pass out so she actually put down towels as she thought that she might fall to the ground so she wanted to question her fall, she did fall to the ground she does not think she hit her head, she does not think that she fully passed out but does not remember the event that well, but could not get up off the ground, denies any significant pain anywhere currently For syncopal episode, likely combination of dehydration, poor oral intake, COVID-19, orthostatic hypotension, received IV fluids, overall clinically improved Patient did have episode of atrial fibrillation during hospitalization, she converted into normal sinus rhythm, she did have sinus pause but was sleeping and was asymptomatic during that time. Will discharge her on event monitor, with close follow-up with cardiology as outpatient For new onset atrial fibrillation, patient and family elected for aspirin on discharge, CHADS2 Vasc is 4, declined anticoagulant therapy, discussed risk and benefits, patient and family voiced understanding, all questions answered, agreed to proceed For COVID-19 relatively asymptomatic, on discharge patient does have neutropenia, but remains afebrile, relatively asymptomatic. Will discharge her with a repeat of her CBC next week, if of any fevers or chills or shortness of breath please go to the emergency room For hypertension, I have held her combination losartan hydrochlorothiazide. I have sent in hydrochlorothiazide 12.5 mg to be used as needed as instructions as below - Please continue to hydrate well -Please monitor for fevers, chills, cough if so come back to the hospital -You did have neutropenia likely secondary to COVID-19, please monitor for risk of infections continue to socially distance, facemask, hand wash, stay away from anybody that is ill or large gatherings -If you do develop symptoms of fevers, cough, shortness of breath please immediately come back to the emergency room -Please have your primary care provider recheck your neutrophil count and your white blood cell count and platelet count next week -Please take aspirin 81 mg daily, if you develop bloody black stools go to emergency room -If you develop any recurrent lightheadedness or dizziness or syncopal episodes please come back to the emergency room -Please wear event monitor as prescribed -If you develop any strokelike symptoms please call 911 -Please continue to hold blood pressure medications for at least a week check your blood pressures once daily at the same time every day -I would advocate for at least in the short-term more liberal approach to managing her blood pressure given your syncope and orthostatic hypotension -Ending that as long as your systolic blood pressure remains below 160 and her diastolic blood pressure remains below 90 and you are asymptomatic meaning no chest pain or shortness of breath or headache or blurry vision that I think it would be reasonable to just watch her blood pressure -I would have you follow-up with your primary care provider in a week -If your blood pressure is consistently greater than 160/90, then I have sent in hydrochlorothiazide 12.5 mg to be used daily as needed -If your blood pressure is still higher than 160/90, then you can increase hydrochlorothiazide to 25 mg once daily -And if beyond that your blood pressure is still elevated you can resume your combination blood pressure medication of losartan and hydrochlorothiazide at 0.5 tab daily return normal sinus rhythm Physical Exam Const: COMMON NORMALS: no acute distress and patient oriented x3 Resp: COMMON NORMALS: normal respiratory effort, No retractions, No use of accessory muscles and clear to auscultation bilaterally AUSCULTATION: clear to auscultation bilaterally Cardio: COMMON NORMALS: regular rate, regular rhythm, S1 normal heart sound present and S2 normal heart sound present RATE: regular rate RHYTHM: regular rhythm HEART SOUNDS: S1 normal heart sound present and S2 normal heart sound present GI: COMMON NORMALS: Normal to inspection, nondistended, normoactive bowel sounds present and non-tender Extremity: COMMON NORMALS: no pedal edema Neuro: COMMON NORMALS: patient oriented x3, CN's II-XII intact bilaterally and moves all extremities Psych: COMMON NORMALS: mental status grossly normal Discharge Data Studies Completed and Pending Completed Studies During Hospitalization Category Date Time Status CT angio chest PE protcl [id number] Routine Cat Scan 02/02/24 16:[address] head wo con* [id number] Stat Cat Scan 02/02/24 13:51 Completed XR chest 1V portable [id number] Stat Exams 02/02/24 12:46 Completed CV carotid duplex BI* [id number] Routine Ultrasound 02/03/24 10:22 Completed CV. echo complete* [id number] Routine Ultrasound 02/02/24 16:53 Completed Pending at discharge Category Date Time Status Complete Blood Count w/Auto AM LABS Lab 02/05/24 04:00 Ordered Comprehensive Metabolic Panel AM LABS Lab 02/05/24 04:00 Ordered Radiology Impressions Chest X-Ray 02/02/24 12:46 IMPRESSION: Mild cardiomegaly otherwise negative chest. Head CT 02/02/24 13:51 IMPRESSION: No acute intracranial hemorrhage or edema. Mild atrophy and small vessel disease. Chest CTA 02/02/24 16:53 IMPRESSION: Negative CT angiogram of the chest. No evidence of acute pulmonary embolism. Laboratory Results WBC 2.31 10^3/uL (3.29-11.43) L 02/04/24 07:01 RBC 4.26 10^6/uL (3.85-5.65) 02/04/24 07:01 Hgb 12.10 g/dL (11.27-16.99) 02/04/24 07:01 Hct 37.6 % (36-47) 02/04/24 07:01 MCV 88.3 fl (85-98) 02/04/24 07:01 MCH 28.4 pg (27-33) 02/04/24 07:01 MCHC 32.2 g/dL (30-55) 02/04/24 07:01 RDW 13.3 % (12.1-15.1) 02/04/24 07:01 Plt Count 146 10^3/cmm (157-399) L 02/04/24 07:01 MPV 10.1 fL (7.4-10.4) 02/04/24 07:01 Neut % (Auto) 38.1 % 02/04/24 07:01 Lymph % (Auto) 40.7 % 02/04/24 07:01 [place] % (Auto) 15.2 % 02/04/24 07:01 Eos % (Auto) 5.2 % 02/04/24 07:01 Baso % (Auto) 0.4 % 02/04/24 07:01 Neut # (Auto) 0.88 10^3/uL (1.8-7.7) L* 02/04/24 07:01 Lymph # (Auto) 0.9 10^3/uL (0.8-4.8) 02/04/24 07:01 [place] # (Auto) 0.4 10^3/uL (0.2-0.9) 02/04/24 07:01 Eos # (Auto) 0.1 10^3/uL (0.0-0.8) 02/04/24 07:01 Baso # (Auto) 0.0 10^3/uL (0.0-0.1) 02/04/24 07:01 Nucleated RBC % (auto) 0 % 02/04/24 07:01 Nucleated RBCs # 0.0 /100WBC 02/04/24 07:01 D-Dimer 0.98 ug/mLFEU (0-0.59) H 02/02/24 13:08 Sodium 141 mmol/L (136-145) 02/04/24 07:01 Potassium 4.0 mmol/L (3.5-5.1) 02/04/24 07:01 Chloride 109 mmol/L (98-107) H 02/04/24 07:01 Carbon Dioxide 26 mmol/L (22-29) 02/04/24 07:01 Anion Gap 10.0 (5-19) 02/04/24 07:01 BUN 12 mg/dL (8-23) 02/04/24 07:01 Creatinine 0.9 mg/dL (0.5-0.9) 02/04/24 07:01 GFR Calculation Not Reportable 02/04/24 07:01 Glucose 95 mg/dL (65-115) 02/04/24 07:01 POC Glucose 98 mg/dL (70-110) 02/02/24 12:51 Estimat Average Glucose 111 02/02/24 13:08 Hemoglobin A1c 5.5 % (4.0-6.0) 02/02/24 13:08 Calculated Osmolality 292 mOsm/kg (285-295) 02/04/24 07:01 Lactic Acid 1.1 mmol/L (0.5-2.2) 02/02/24 18:07 Calcium 8.1 mg/dL (8.5-10.5) L 02/04/24 07:01 Total Bilirubin 0.2 mg/dL (0.15-1.2) 02/04/24 07:01 AST 24 U/L (0-32) 02/04/24 07:01 ALT 15 U/L (0-33) 02/04/24 07:01 Alkaline Phosphatase 51 U/L (35-105) 02/04/24 07:01 Creatine Kinase 151 U/L (26-192) 02/02/24 19:09 Troponin T Baseline 9 ng/L (0-10) 02/02/24 13:08 Troponin T 120 Minute 12.86 ng/L (0-10) H 02/02/24 15:18 Delta Troponin T 3.86 ABS# (0-10) 02/02/24 15:18 Troponin T Hi Sens 6Hr 9.55 ng/L (0-10) 02/02/24 19:07 Troponin T Hi Sens 6Hr Delta 0.55 ng/L (0-12) 02/02/24 19:07 C-Reactive Protein 12.0 mg/L (0.0-4.9) H 02/02/24 13:08 NT-Pro-B Natriuret Pep 1537 pg/mL (0-450) H 02/02/24 15:18 Total Protein 5.5 g/dL (6.6-8.7) L 02/04/24 07:01 Albumin 3.4 g/dL (3.5-5.2) L 02/04/24 07:01 Globulin 2.1 g/dL (1.3-4.6) 02/04/24 07:01 Triglycerides 101 mg/dL (0-150) 02/02/24 19:09 Cholesterol 127 mg/dL (0-200) 02/02/24 19:09 LDL Cholesterol, Calc 62 mg/dL (50-129) 02/02/24 19:09 HDL Cholesterol 45 mg/dL (60-100) L 02/02/24 19:09 LDL/HDL Ratio 1.38 RATIO (0.00-3.22) 02/02/24 19:09 Cholesterol/HDL Ratio 2.82 mg/dL (0.0-4.40) 02/02/24 19:09 Procalcitonin 0.10 ng/mL (0-0.5) 02/02/24 13:08 TSH 2.65 uIU/mL (0.27-4.20) 02/02/24 19:09 Urine Color Yellow (Yellow) 02/02/24 13:14 Urine Appearance Clear (CLEAR) 02/02/24 13:14 Urine pH 6.5 (5-7) 02/02/24 13:14 Ur Specific [place] 1.018 (1.005-1.030) 02/02/24 13:14 Urine Protein 1+ (Negative) A 02/02/24 13:14 Urine Glucose (UA) Negative (Normal) 02/02/24 13:14 Urine Ketones 2+ (Negative) H 02/02/24 13:14 Urine Blood Negative (Negative) 02/02/24 13:14 Urine Nitrate Negative (Negative) 02/02/24 13:14 Urine Bilirubin Negative (Negative) 02/02/24 13:14 Urine Urobilinogen 1.0 mg/dL (Negative) 02/02/24 13:14 Ur Leukocyte Esterase Negative (Negative) 02/02/24 13:14 Urine RBC 0-2 /hpf (0-2) 02/02/24 13:14 Urine WBC 0-5 /hpf (0-5) 02/02/24 13:14 Ur Squamous Epith Cells 0-5 /hpf (0-5) 02/02/24 13:14 Amorphous Sediment Not Reportable 02/02/24 13:14 Urine Bacteria None seen /hpf (NONE) 02/02/24 13:14 Hyaline Casts 2.46 /lpf 02/02/24 13:14 Coronavirus (PCR) Positive (Negative) A 02/02/24 13:50 Influenza A (PCR) Negative (Negative) 02/02/24 13:50 Influenza Type B (PCR) Negative (Negative) 02/02/24 13:50 RSV (PCR) Negative (Negative) 02/02/24 13:50 Vitals Last Vital Signs Temp 98.4 F 02/04/24 08:00 Pulse 76 02/04/24 08:00 Resp 14 02/04/24 08:00 BP 169/85 02/04/24 08:00 Pulse Ox 94 02/04/24 08:00 O2 Del Method Room Air 02/04/24 08:00 Discharge Plan Discharge Patient Disposition: Home Condition: Stable Prescriptions: New aspirin 81 mg tablet,delayed release (DR/EC) 81 mg PO DAILY 30 Days Qty: 30 0RF hydrochlorothiazide 12.5 mg tablet 12.5 mg PO DAILY PRN (Reason: for sbp>160 or dbp>90) 30 Days Qty: 30 0RF Continued cholecalciferol (vitamin D3) 50 mcg (2,000 unit) tablet 2,000 unit PO DAILY Qty: 90 3RF atorvastatin 10 mg tablet 10 mg PO DAILY omeprazole magnesium [Prilosec OTC] 20 mg Tablet,Delayed Release (Dr/Ec) 20 mg PO DAILY Held losartan-hydrochlorothiazide 50-12.5 mg tablet 0.5 tab PO DAILY Hold Instructions: Resume on 02/11/24. Discharge Orders: Discharge Order (Routine); Ordered 02/04/24 Ordered By: Darion Castro Other Ambulatory Orders: Physical Therapy Outpatient in Home Eval and Treat Other (Order) Facility: [facility] - Location: Physical Therapy Ordered By: Darion Castro MCT/Event Monitor 30 Days (Routine) Timeframe: 1 Day Facility: [facility] - Location: Radiology Ordered By: Darion Castro Referrals: Tadeo Baeza MD [Primary Care Provider] - (Please call the office to schedule follow up appt) Discharge Diet: Cardiac Discharge Activity: Resume usual activity Patient Instructions: Atrial Fibrillation, Dehydration - Adult, Syncope (DC), Prevent Infections (GEN), How To Wash Your Hands (DC), Opioid Safety Activity Restrictions/Additional Instructions: - Please continue to hydrate well -Please monitor for fevers, chills, cough if so come back to the hospital -You did have neutropenia likely secondary to COVID-19, please monitor for risk of infections continue to socially distance, facemask, hand wash, stay away from anybody that is ill or large gatherings -If you do develop symptoms of fevers, cough, shortness of breath please immediately come back to the emergency room -Please have your primary care provider recheck your neutrophil count and your white blood cell count and platelet count next week -Please take aspirin 81 mg daily, if you develop bloody black stools go to emergency room -If you develop any recurrent lightheadedness or dizziness or syncopal episodes please come back to the emergency room -Please wear event monitor as prescribed -If you develop any strokelike symptoms please call 911 -Please continue to hold blood pressure medications for at least a week check your blood pressures once daily at the same time every day -I would advocate for at least in the short-term more liberal approach to managing her blood pressure given your syncope and orthostatic hypotension -Ending that as long as your systolic blood pressure remains below 160 and her diastolic blood pressure remains below 90 and you are asymptomatic meaning no chest pain or shortness of breath or headache or blurry vision that I think it would be reasonable to just watch her blood pressure -I would have you follow-up with your primary care provider in a week -If your blood pressure is consistently greater than 160/90, then I have sent in hydrochlorothiazide 12.5 mg to be used daily as needed -If your blood pressure is still higher than 160/90, then you can increase hydrochlorothiazide to 25 mg once daily -And if beyond that your blood pressure is still elevated you can resume your combination blood pressure medication of losartan and hydrochlorothiazide at 0.5 tab daily Discharge Attestations Time Spent in Discharge Care*: greater than 30 min Quality Metrics Clinical Quality Measures [ No reported AMI, CVA or VTE this stay] Coding Level of Care Code 08102 Total time (in minutes) for Discharge: 45 Diagnoses Syncope R55 COVID-19 U07.1 Atrial fibrillation I48.91 Dehydration E86.0 Sinus pause I45.5 Orthostatic hypotension I95.1
== END 2024-02-04 13:01 | disposition home or self-care (01) | DRG 179 ==
LOC: ER 15:43 → CSU 15:50
PROVIDERS: Admitting Provider Family Medicine; Emergency Provider Emergency Medicine; PCP Family Medicine; Visit Provider Family Medicine
DX: U07.1 COVID-19 (principal); I48.91 Unspecified atrial fibrillation; E86.0 Dehydration; I45.5 Other specified heart block; I95.1 Orthostatic hypotension; M35.3 Polymyalgia rheumatica; I10 Essential (primary) hypertension; E78.00 Pure hypercholesterolemia, unspecified; Z66 Do not resuscitate
CPT/HCPCS: 36415; 36416; 70450; 71045; 71275; 80053; 80061; 81001; 82550; 82962; 83036; 83605; 83880; 84145; 84443; 84484; 85025; 85378; 86140; 87637; 93005; 93306; 93880; 96372; 96376; 97110; 97161; 97165; 97530; A9270; J1650; J2405; J2470; J7030

== ENCOUNTER 2024-02-08 06:30 | Outpatient (RCR) | payer MEDICARE, OTHER, SELFPAY | END 2024-03-09 23:59 | disposition home or self-care (01) | LOC: APT 06:30 | PROVIDERS: Visit Provider Family Medicine | DX: M62.81 Muscle weakness (generalized) (principal) | CPT/HCPCS: 97110; 97162 ==

== ENCOUNTER → 2024-02-23 14:13 | Outpatient (BNVA) | payer MEDICARE, OTHER, SELFPAY | PROVIDERS: PCP Family Medicine; Visit Provider Nurse Practitioner Family | DX: I48.91 Unspecified atrial fibrillation (principal); I45.10 Unspecified right bundle-branch block; R94.31 Abnormal electrocardiogram [ECG] [EKG] | CPT/HCPCS: 36415; 83735; 93005; 99213 ==

== ENCOUNTER 2024-03-10 06:30 | Outpatient (RCR) | payer MEDICARE, OTHER, SELFPAY | END 2024-04-06 23:59 | disposition home or self-care (01) | LOC: APT 06:30 | PROVIDERS: Visit Provider Family Medicine | DX: M62.81 Muscle weakness (generalized) (principal) | CPT/HCPCS: 97110; 97112 ==

== ENCOUNTER 2024-04-07 06:00 | Outpatient (RCR) | payer MEDICARE, OTHER, SELFPAY | END 2024-05-07 23:59 | disposition home or self-care (01) | LOC: APT 06:00 | PROVIDERS: Visit Provider Family Medicine | DX: M62.81 Muscle weakness (generalized) (principal) | CPT/HCPCS: 97110; 97112; 97530 ==

== ENCOUNTER 2024-05-08 05:00 | Outpatient (RCR) | payer MEDICARE, OTHER, SELFPAY | END 2024-06-06 23:59 | disposition home or self-care (01) | LOC: APT 05:00 | PROVIDERS: Visit Provider Family Medicine | DX: M62.81 Muscle weakness (generalized) (principal) | CPT/HCPCS: 97110; 97530 ==

== ENCOUNTER 2024-06-07 05:00 | Outpatient (RCR) | payer MEDICARE, OTHER, SELFPAY | END 2024-07-07 23:59 | disposition home or self-care (01) | LOC: APT 05:00 | PROVIDERS: PCP Family Medicine; Visit Provider Family Medicine | DX: M62.81 Muscle weakness (generalized) (principal) | CPT/HCPCS: 97110 ==

== ENCOUNTER → 2024-07-30 11:03 | Outpatient (BNVA) | payer MEDICARE, OTHER, SELFPAY | PROVIDERS: PCP Family Medicine; Visit Provider Nurse Practitioner Family | DX: L57.8 Other skin changes due to chronic exposure to nonionizing radiation (principal); L82.1 Other seborrheic keratosis; B35.1 Tinea unguium; L82.0 Inflamed seborrheic keratosis; Z08 Encounter for follow-up examination after completed treatment for malignant neoplasm; Z85.828 Personal history of other malignant neoplasm of skin; L57.0 Actinic keratosis | CPT/HCPCS: 17000; 99214 ==

== ENCOUNTER → 2024-11-08 12:43 | Outpatient (BNVA) | payer MEDICARE, OTHER, SELFPAY | PROVIDERS: PCP Family Medicine; Visit Provider Nurse Practitioner Family | DX: L57.8 Other skin changes due to chronic exposure to nonionizing radiation (principal); L81.4 Other melanin hyperpigmentation; D22.5 Melanocytic nevi of trunk; L82.1 Other seborrheic keratosis; L82.0 Inflamed seborrheic keratosis; Z78.9 Other specified health status; R20.8 Other disturbances of skin sensation; L29.89 Other pruritus; L53.8 Other specified erythematous conditions; R58 Hemorrhage, not elsewhere classified | CPT/HCPCS: 17110; 99213 ==